=== PATIENT | female | born 1950 | race Caucasian/White ===

== ENCOUNTER 2020-05-17 12:46 | Emergency (ER) | payer BC ==
--- NOTE | 2020-05-17 13:47 | ULT ---
EXAM: Right lower extremity venous Doppler US HISTORY: Right lower extremity edema and pain FINDINGS: Grayscale, color-flow, Doppler evaluation, spectral analysis of the right lower extremity venous stru ctures is performed with 2-D imaging. The right common femoral, superficial femoral, popliteal, posterior tibial, proximal greater saphenous and profunda femoral veins are imaged. There is normal luminal compressibility, flow, and augmentation the visualized deep venous structures of the right lower extremity. IMPRESSION: No evidence of a deep vein thrombosis in the right lower extremity.
--- NOTE | 2020-05-17 16:32 | RAD ---
Exam:Right tibia fibula 2 views HISTORY: Pain. COMPARISON: None FINDINGS: No fracture, cortical irregularity or periosteal reaction. IMPRESSION: No fracture.
== END 2020-05-17 16:45 | disposition home or self-care (01) ==
LOC: ERS 12:46
DX: L03.115 Cellulitis of right lower limb (principal); I10 Essential (primary) hypertension